=== PATIENT | female | born 1950 | race Caucasian/White ===

== ENCOUNTER 2023-03-15 08:01 | Outpatient (CLI) | payer MEDICARE, SELFPAY ==
--- NOTE | 2023-03-15 | ECHO_ITS ---
Patient Info Name: Iris Holman Age: 72 years : 1950 Gender: Female Ht: 63 in Wt: 178 lbs BSA: 1.92 m2 HR: 91 bpm BP: 162 / 103 mmHg Heart Rhythm: Sinus Rhythm Technical Quality: Good Exam Date: 03/15/2023 8:43 AM Exam Location: Echo Lab Patient Status: Outpatient Admit Date: 03/15/2023 Staff Ordering Physician: KaranDannielle Cytology Supervisor: Shawanda Marroquin RDCS Attending Provider: KaranDannielle Exam Type: CA echo doppler color flow Study Info Indications - htn/diabetes Complete two-dimensional, color flow and Doppler transthoracic echocardiogram is performed. Summary 1. Complete two-dimensional, color flow and Doppler transthoracic echocardiogram is performed. 2. Normal left ventricular size and systolic function with grade 1 diastolic noncompliance. 3. Modest mitral annular calcification. 4. No valvular abnormality. Left Ventricle Left ventricular chamber dimension is normal. Left ventricular systolic function is normal, estimated at 60-65%. The left ventricular diastolic function is grade I diastolic dysfunction. Right Ventricle Right ventricular chamber dimension is normal. Left Atria Left atrial chamber dimension is normal. Right Atria Right atrial chamber dimension is normal. Aortic Valve The aortic valve is normal. Pulmonic Valve The pulmonic valve is not well visualized. Mitral Valve The mitral valve has normal leaflets. Tricuspid Valve The tricuspid valve leaflets are normal. Pericardium/Pleural The pericardium appears normal. Aorta The aortic root size at the sinus of Valsalva is normal. Left Ventricular Outflow Tract Name Value Normal LVOT 2D LVOT Diameter 1.9 cm LVOT Doppler LVOT Peak Gradient 4 mmHg LVOT Mean Gradient 2 mmHg LVOT VTI 26 cm LVOT VTI/AV VTI Ratio 0.9 LVOT Stroke Volume 75 ml LVOT CO 5.4 l/min LVOT CI 2.8 l/min/m2 Pulmonic Valve Name Value Normal RVOT Doppler RVOT Peak Gradient 1 mmHg PV Doppler PV Peak Gradient 2 mmHg Mitral Valve Name Value Normal MV Doppler MV Decel Fannin 360 cm/s2 MV PHT 64 ms MV Area (PHT) 3.4 cm2 4.0-5.0 MV Diastolic Function MV E Peak Velocity 80 cm/s MV A Peak Velocity
== END 2023-03-15 08:02 | disposition home or self-care (01) ==
PROVIDERS: PCP Physician Assistant; Visit Provider Physician Assistant
DX: I15.2 Hypertension secondary to endocrine disorders (principal); E11.59 Type 2 diabetes mellitus with other circulatory complications; I10 Essential (primary) hypertension; R93.1 Abnormal findings on diagnostic imaging of heart and coronary circulation; I34.81 Nonrheumatic mitral (valve) annulus calcification
CPT/HCPCS: 93306

== ENCOUNTER 2023-09-22 16:08 | Emergency (ER) | payer OTHER, SELFPAY ==
--- NOTE | ~2023-09-22 | CT_ITS ---
CT abdomen pelvis w con Ordering provider: Shavonne Merchant MD History: 72 years Female with . LLQ abd pain; c/f diverticulitis . Comparison: None. Technique: CT abdomen and pelvis with IV and without oral contrast. Automated exposure control and it erative reconstruction technique were employed. The dose-length product was 980.27 mGy-cm. 100 mL Omn ipaque 350 was given. Findings: VISUALIZED LOWER CHEST: Minimal dependent atelectatic changes. UPPER ABDOMINAL ORGANS: Liver: Fat infiltration. Gallbladder: Normal. Spleen: Normal. Stomach/duodenum: Normal. Pancreas: Normal. Adrenals: Normal. Kidneys: Tiny cyst in the right kidney upper pole. PELVIC ORGANS: The bladder is normal. Tiny stone in the posterior aspect of the urinary bladder. Thi s also may be in the end of the right ureter. Uterus: Small fibroid measuring 1.5 cm. BOWEL AND MESENTERY: Colon: No evidence of diverticulitis. Normal appendix. Small Bowel: Slight thickening in the proximal jejunal loops which may indicate enteritis. No obstruc tion. Peritoneum/mesentery: No free air or free fluid. No mesenteric lymphadenopathy. RETROPERITONEUM: Mild atheromatous disease of the abdominal aorta. No retroperitoneal lymphadenopat hy. MUSCULOSKELETAL: Superficial soft tissues: The superficial soft tissues are normal. Bones: Age appropriate degenerative changes of the spine. Loss of volume of L1 which may indicate acu te compression fracture IMPRESSION: 1. No evidence of appendicitis, diverticulitis or intestinal obstruction. 2. Fat infiltration of the liver. 3. Slight thickening of the jejunal loops which may indicate enteritis. 4. Small fibroid of the uterus. 5. Compression fracture of L1 most likely acute. Clinical correlation advised. Reviewed, dictated and finalized at location A.
[2023-09-22 16:23] VITALS: BP 148/86; PULSE 123; RESP 18; TEMP 36.5; O2SAT 96
[2023-09-22 16:37] LABS: Appearance Urine Clear (Clear); Bilirubin Urine Negative (Negative); Blood Urine Negative (Negative); Color Urine Yellow (Yellow); Glucose Urine UA Negative (Negative); Ketones Urine Negative (Negative); Leukocyte Esterase Ur Negative LEU/UL (Negative); Nitrate Urine Negative (Negative); Protein Urine Negative (Negative); Specific Grav Ur 1.014 (1.001-1.035); Urobilinogen Urine 0.2 mg/dL (<2.0); pH Urine 7.5 (5.0-9.0)
[2023-09-22 16:51] LABS: Add Urine Microscopic? NO
[2023-09-22 18:18] VITALS: BP 159/95; PULSE 116; RESP 16; TEMP 36.7; O2SAT 97
[2023-09-22 18:30] LABS: Basophils Percent Auto 0.4 % (0.2-1.2); Hemoglobin 13.3 g/dL (12.0-15.0); Immature Granulocyte Absolute 0.03 K/mm3 (0.00-0.031); Immature Granulocyte Percent A 0.3 % (0-0.5); Lymphocytes Absolute Auto 0.61 K/mm3 (0.9-3.2); Lymphocytes Percent Auto 5.6 % (18.3-44.2); Mean Corpuscular HGB Conc 33.3 g/dl (32-36); Mean Corpuscular Hemoglobin 28.9 pg (26-34); Mean Platelet Volume 9.6 fl (7.4-10.4); Monocytes Absolute Auto 0.4 K/mm3 (0.1-0.6); Monocytes Percent Auto 3.3 % (2.6-8.5); Neutrophils Absolute Auto 9.8 K/mm3 (1.3-6.7); Neutrophils Percent Auto 90.4 % (45.5-73.1); Platelet Count Result 305 k/mm3 (150-375); Red Cell Distribution Width 13.4 % (11.5-14.5); White Blood Count 10.8 K/mm3 (4.5-10.0)
[2023-09-22 18:47] LABS: Alanine Aminotransferase 49 U/L (6-35); Albumin Level 4.4 g/dL (3.5-5.1); Alkaline Phosphatase 98 U/L (38-126); Anion Gap 10 mmol/L (4-12); Aspartate Amino Transferase 32 U/L (14-36); Bilirubin,Total 0.4 mg/dL (0.2-1.3); Blood Urea Nitrogen 12 mg/dL (7-17); Calcium 9.4 mg/dL (8.4-10.2); Carbon Dioxide 25 mmol/L (22-30); Chloride 100 mmol/L (98-107); Estimated CRCL calculation 78 ml/min; Estimated Glomerular Filt Rate > 60; Glucose 153 mg/dL (65-110); Lipase 59 U/L (23-300); Potassium 4.4 mmol/L (3.4-5.0); Sodium 135 mmol/L (137-145)
--- NOTE | 2023-09-22 19:54 | ED.NAVMDI ---
HPI - Nausea/Vomiting/Diarrhea General Chief complaint: Nausea/Vomiting/Diarrhea Stated complaint: N/V/D Time Seen by Provider: 09/22/23 19:33 Source: patient Mode of arrival: ambulatory Limitations: no limitations History of Present Illness HPI Narrative: Patient presents with nausea, vomiting, and diarrhea. She reports 3 episodes loose and runny stools but neither emesis in 1 movements have been bloody. She is also having some left lower quadrant abdominal pain. She denies any vaginal bleeding or discharge but she does note that she is still sexually active. Recently started Celebrex for arthritis but otherwise no new medications. No past medical history of diverticulitis. Subjective fever. She denies any urinary urgency, frequency, hematuria, or dysuria. Her last oral intake was 10:00 a.m.. Her last bowel movement was approximately 2:00 p.m. though she feels like she needs to go. She normally has multiple bowel movements every morning. Her last colonoscopy was at least 10 years ago and she is due for a repeat she is planning on scheduling soon. Related Data Allergies Allergy/AdvReac Type Severity Reaction Status Date / Time No Known Allergies Allergy Verified 09/22/23 20:06 [facility] Past Medical History Medical History (Updated 09/23/23 @ 16:58 by Shavonne Merchant MD) Arthritis Surgical History Surgical History (Updated 09/23/23 @ 16:58 by Shavonne Merchant MD) History of colonoscopy approx/before 2013 Exam Narrative: GENERAL: Well-appearing, well-nourished, and in no acute distress. HEAD: Normocephalic, atraumatic. EYES: Nonicteric, noninjected ENT: Nares clear, no rhinorrhea or epistaxis. NECK: Supple. CHEST: Speaking complete sentences. No respiratory distress. HEART: Tachycardic rate and rhythm. ABDOMEN: Soft, nontender, nondistended. No rigidity or guarding. Not peritoneal. EXTREMITIES: Normal range of motion. No edema. SKIN: Warm, dry, no rash. NEURO: No focal deficits. Alert and oriented x3. PSYCH: Normal mood and affect. Course Vital Signs Vital signs: Vital Signs Temperature 97.7 F 09/22/23 16:23 Pulse Rate 123 H 09/22/23 16:23 Respiratory Rate 18 09/22/23 16:23 Blood Pressure 148/86 H 09/22/23 16:23 Pulse Oximetry 96 09/22/23 16:23 Temperature 98.0 F 09/22/23 18:18 Pulse Rate 108 H 09/22/23 22:08 Respiratory Rate 15 09/22/23 22:08 Blood Pressure 135/72 09/22/23 22:08 Pulse Oximetry 96 09/22/23 22:08 MDM - Nausea/Vomiting/Diarrhea MDM Narrative Medical decision making narrative: Patient presents with nausea, vomiting, and diarrhea as well as left lower quadrant abdominal pain. In the emergency department she is afebrile with vital signs notable for hypertension and tachycardia. The differential for acute ( less than 14d) diarrhea includes infectious etiologies (viral, preformed toxins, toxins formed after colonization, invasive bacteria, and parasites), medications, inflammatory causes (IBD, radiation enteritis, ischemic colitis, diverticulitis), malabsorption, secretory causes, or motility disorders. Patient is told about her CT findings. We discussed that enteritis is usually viral in thus no role for antibiotics. Patient's urine is unremarkable thus no role for antibiotics. I noted that she does have a evidence of a uterine fibroid. She no longer follows with an Ob Gyne so a referral will be given to 1. She also notes that she knows about the compression fracture in her vertebrae and wears a abdominal belt as result. Provided prescriptions for [id number] analgesics medications as well as Zofran ODT. Advised on follow-up as well as ED return precautions. She verifies understanding and is in agreement. Stable for discharge. Differential Diagnosis Differential diagnosis: Likely gastroenteritis, dehydration and other ( Diverticulitis, urinary tract infection, STI; PID; endometrial/uterine pathology) Lab Data Attest
[2023-09-22] MEDS: ONDANSETRON INJ 4 MG/2 ML VIAL IV PUSH (20:07)
[2023-09-22] MEDS: SODIUM CHLORIDE 0.9% IV 1,000 ML 999 ML IV CONT (20:07)
--- NOTE | 2023-09-22 20:13 | PC.NURSE ---
Pt states her pain is a 1/10 and she would like to hold off on any pain medicine at this time.
[2023-09-22 21:09] VITALS: BP 138/82; PULSE 106; RESP 15; O2SAT 96
[2023-09-22 21:42] LABS: Chlamydia trachomatis NOT DETECTED (NOT DETECTE); Neisseria gonorrhoeae PCR NOT DETECTED (NOT DETECTE)
[2023-09-22 22:08] VITALS: BP 135/72; PULSE 108; RESP 15; O2SAT 96
== END 2023-09-22 22:10 | disposition home or self-care (01) ==
PROVIDERS: Emergency Medicine; Emergency Provider Student in an Organized Health Care Education/Training Program; PCP Physician Assistant
DX: K52.9 Noninfective gastroenteritis and colitis, unspecified (principal); M48.56XA Collapsed vertebra, not elsewhere classified, lumbar region, initial encounter for fracture; D25.9 Leiomyoma of uterus, unspecified; K76.0 Fatty (change of) liver, not elsewhere classified; D72.829 Elevated white blood cell count, unspecified; R10.30 Lower abdominal pain, unspecified
CPT/HCPCS: 36415; 74177; 80053; 81003; 83690; 85025; 87491; 87591; 96361; 96374; 99284; J2405; J7030; Q9967

== ENCOUNTER 2024-12-09 14:49 | Outpatient (CLI) | payer OTHER, SELFPAY ==
--- NOTE | ~2024-12-09 | XR_ITS ---
EXAMINATION: XR knee LT min 4V, 12/09/2024 15:12 CDT HISTORY: OA, Right and Left knee COMPARISON: No comparisons available. Findings: No acute fracture or malalignment. Moderate to severe tricompartmental degenerative changes, small effusion Soft tissues unremarkable. Impression: No acute fracture or malalignment. Reviewed, dictated and finalized at location A. Impression: No acute fracture or malalignment.
--- NOTE | ~2024-12-09 | XR_ITS ---
EXAMINATION: XR knee RT min 4V, 12/09/2024 15:12 CDT HISTORY: OA, Right and Left knee COMPARISON: No comparisons available. Findings: No acute fracture or malalignment. Moderate to severe tricompartmental degenerative changes with small effusion Soft tissues unremarkable. Impression: No acute fracture or malalignment. Reviewed, dictated and finalized at location A. Impression: No acute fracture or malalignment.
== END 2024-12-09 14:50 | disposition home or self-care (01) ==
DX: M17.0 Bilateral primary osteoarthritis of knee (principal)
CPT/HCPCS: 73564